=== PATIENT | female | born 1980 ===

== ENCOUNTER 2023-07-15 13:22 | Emergency (ER) | payer OTHER, SELFPAY ==
--- NOTE | 2023-07-15 | ECG_ITS ---
Test Reason : palpitations Blood Pressure : / mmHG Vent. Rate : 072 BPM Atrial Rate : 072 BPM P-R Int : 112 ms QRS Dur : 088 ms QT Int : 344 ms P-R-T Axes : 058 077 042 degrees QTc Int : 376 ms Normal sinus rhythm Normal ECG No previous ECGs available Referred By: Generic ED Physician Electronically Signed By:Roddy Elizalde
--- NOTE | ~2023-07-15 | XR_ITS ---
EXAMINATION: XR CHEST CLINICAL INFORMATION: Chest pain, palpitations COMPARISON: None available. TECHNIQUE: 2 views of the chest were obtained. FINDINGS: No significant abnormality is noted involving the heart, lungs, mediastinum, bony thorax or soft tissues. XR/XR chest 2V IMPRESSION: Unremarkable chest examination.
[2023-07-15 13:28] VITALS: BP 124/70; PULSE 74; O2SAT 100
[2023-07-15 13:41] VITALS: BP 108/64; PULSE 70; RESP 16; TEMP 36.8; O2SAT 100
[2023-07-15 13:44] VITALS: BP 108/64; PULSE 69; RESP 15; TEMP 36.8; O2SAT 100; BMI 27.7
[2023-07-15 13:49] VITALS: PULSE 71
[2023-07-15 13:49] LABS: MANUAL DIFF FLAG NO
[2023-07-15 13:56] LABS: Basophils Absolute Auto 0.1 X10*3/uL (0.0-0.2); Basophils Percent Auto 0.8 % (0-2); Eosinophils Absolute Auto 0.2 X10*3/uL (0.0-0.4); Eosinophils Percent Auto 3.9 % (0-4); Hematocrit 40.6 % (37.0-47.0); Hemoglobin 13.5 g/dl (12.0-16.0); Imm Gran Abs Auto 0.01 X10*3/uL (0.00-0.03); Imm Gran Pct Auto 0.2 % (0.0-0.4); Lymphocytes Absolute Auto 2.1 X10*3/uL (1.2-4.9); Lymphocytes Percent Auto 33.2 % (20-40); Mean Corpuscular HGB Conc 33.3 g/dl (31.0-35.0); Mean Corpuscular Hemoglobin 29.7 pg (27.0-33.0); Mean Corpuscular Volume 89.4 fL (80.0-98.0); Mean Platelet Volume 11.2 fL (9.4-12.3); Monocytes Absolute Auto 0.5 X10*3/uL (0.1-1.2); Monocytes Percent Auto 7.4 % (2-11); Neutrophils Absolute Auto 3.4 x10*3/uL (2.0-8.3); Neutrophils Percent Auto 54.5 % (45-73); Platelet Count 289 X10*3/uL (160-400); Red Blood Count 4.54 X10*6/uL (4.20-5.50); White Blood Count 6.2 X10*3/uL (4.8-10.8)
[2023-07-15 14:02] LABS: Anion Gap 12 (12-20); Blood Urea Nitrogen 9 mg/dL (9-16); Calcium 9.5 mg/dL (8.4-10.2); Carbon Dioxide 24 mmol/L (22-29); Chloride 105 mmol/L (96-108); Creatinine Clr Calc Pharmacy 88.1; Estimated Glomerular Filt Rate > 60; Glucose Random 84 mg/dL (60-115); Potassium 3.6 mmol/L (3.3-5.1); Sodium 137 mmol/L (135-145)
[2023-07-15 14:13] LABS: Troponin-I High Sensitivity < 2.7 ng/L (<3.5-17.0)
[2023-07-15 14:37] LABS: Partial Thromboplastin Time 33.8 SEC (26.0-36.8)
--- NOTE | 2023-07-15 14:56 | ED_ITS ---
HPI - Arrhythmia/Palpitations General Chief Complaint: Arrhythmia/Palpitations Stated Complaint: NEAR SYNCOPE CHEST PALPITATIONS Time Seen by Provider: 07/15/23 14:44 Source: patient and family Mode of arrival: ambulatory Limitations: no limitations History of Present Illness HPI narrative: 42-year-old man presents emergency room complaining of 3 months of chest tightness and sharp pain. She states she has not seen anyone she did have an EKG at her doctor's office which they stated was normal. Today she was going for doctor's visit and felt like she might pass out. Her was with her states she had 4 of leuk she states she was sitting talking to someone this happened she denies any falls or injuries she lose consciousness states she did have some chest pressure at that time and palpitations. All the symptoms have resolved she still has chronic sharp chest pain she has not taken any for this she denies any falls or injuries sent hit her chest she has not been lifting anything. Patient is also complaining of coldness to her feet when she is to call if she feels dizzy. MD complaint: rapid heart beat and heart racing Related Data Allergies Allergy/AdvReac Type Severity Reaction Status Date / Time No Known Allergies Allergy Mild NKA Unverified 03/15/21 15:51 Review of Systems 2 Review of Systems: Review of systems: General: Patient denies any fever chills recent illness or falls Musculoskeletal: Denies back pain or body aches or other injuries HEENT: denies headache, runny nose, ear pain Respiratory: denies shortness of breath, cough Cardiovascular: chest pain or palpitations : denies dysuria, frequency Abdomen: no nausea vomiting denies abdominal pain Extremities: no swelling, no pain Skin: no diaphoresis Yes all other systems are reviewed and are negative [facility] Social History Social History (System 03/15/21 @ 15:51 by Shawna Sheridan) Smoked in Last 30 Days: No Use of substances other than those prescribed or required for medical reasons: No Advance Directives: No Physical Exam 2 Vital Signs: Vital Signs: Last Vital Signs Temp 98 F 07/15/23 15:01 Pulse 72 07/15/23 15:01 Resp 19 07/15/23 15:01 BP 112/79 07/15/23 15:01 Pulse Ox 99 07/15/23 15:01 O2 Del Method Room Air 07/15/23 15:01 BMI result Body Mass Index 27.7 Neurological exam: CN II- XII tested. Patient is alert and oriented to person place and time. Patient has no dysphagia or dysarthia, denies good vision in all four vision julian no nystagmus on exam, good strength to upper and lower extremities with normal reflexes to brachioradialis, wrist, patella and achilles. Negative romberg, good finger to nose and heel to golden. General: Well-appearing well-nourished in no signs of distress HEENT: Normocephalic atraumatic Neck: No signs of JVD, no masses no tenderness or lymphadenopathy Cardiovascular: Regular rate and rhythm Respiratory: Clear to auscultation bilaterally Abdomen: Soft nontender no masses Extremities: Normal pedal pulses no signs of edema Skin: Dry warm no rashes Back: No tenderness full ROM Course Course Course Narrative: Patient had some general labs sent from triage added on an x-ray and TSH which were also negative I gave the patient prednisone Toradol she states she is feeling somewhat better go home ibuprofen and PCP follow-up Medications Administered Discontinued Medications Generic Name Dose Route Start Last Admin Trade Name Freq PRN Reason Stop Dose Admin Sodium Chloride 1,000 mls @ 999 mls/hr 07/15/23 15:15 07/15/23 16:12 Ns IV 07/15/23 16:15 Infused .Q1H1M NAVNEET Infusion Prednisone 60 mg 07/15/23 15:01 07/15/23 15:06 Prednisone 20 Mg Tablet PO 07/15/23 15:02 60 mg ONCE ONE Administration Medical Decision Making Medical Decision Making [facility] Narrative: Occupation for x-ray and EKG I will check labs and reassess Differential Diagnosis Differential Diagnoses: The differential diagnosis associated with the presentation includes Arrhythmia palpitations costochondritis ACS pneumonia anxiety depression anemia electrolyte abnormality Admission/Observation Consideration of admission/observation: Escalation of care including admission/observation considered Lab Data [facility] Lab Attestation statement: I reviewed the patient's lab results. 07/15/23 13:45 07/15/23 13:45 Labs: Lab Results 07/15/23 07/15/23 Range/Units 13:45 15:12 WBC 6.2 (4.8-10.8) X10*3/uL RBC 4.54 (4.20-5.50) X10*6/uL Hgb 13.5 (12.0-16.0) g/dl Hct 40.6 (37.0-47.0) % MCV 89.4 (80.0-98.0) fL MCH 29.7 (27.0-33.0) pg MCHC 33.3 (31.0-35.0) g/dl RDW 12.0 (11.0-16.0) % Plt Count 289 (160-400) X10*3/uL MPV 11.2 (9.4-12.3) fL Immature Gran % (Auto) 0.2 (0.0-0.4) % Neut % (Auto) 54.5 (45-73) % Lymph % (Auto) 33.2 (20-40) % [place] % (Auto) 7.4 (2-11) % Eos % (Auto) 3.9 (0-4) % Baso % (Auto) 0.8 (0-2) % Lymph # (Auto) 2.1 (1.2-4.9) X10*3/uL [place] # (Auto) 0.5 (0.1-1.2) X10*3/uL Eos # (Auto) 0.2 (0.0-0.4) X10*3/uL Baso # (Auto) 0.1 (0.0-0.2) X10*3/uL Abs Immat Gran (auto) 0.01 (0.00-0.03) X10*3/uL Absolute Neuts (auto) 3.4 (2.0-8.3) x10*3/uL Absolute Nucleated RBC 0.000 (0.0-0.012) X10*3/uL Nucleated RBC % (auto) 0.0 (0.0-0.2) /100WBC APTT 33.8 (26.0-36.8) SEC Sodium 137 (135-145) mmol/L Potassium 3.6 (3.3-5.1) mmol/L Chloride 105 (96-108) mmol/L Carbon Dioxide 24 (22-29) mmol/L Anion Gap 12 (12-20) BUN 9 (9-16) mg/dL Creatinine 0.69 (0.5-1.4) mg/dL Estim Creat Clear Calc 88.1 Estimated GFR > 60 Random Glucose 84 (60-115) mg/dL Calcium 9.5 (8.4-10.2) mg/dL Troponin I High Sens < 2.7 < 2.7 (<3.5-17.0) ng/L Beta HCG, Quant < 2 mIU/mL Independent Interpretation I performed an independent interpretation of an: EKG Interpretation: Rate 72 normal sinus rhythm normal intervals no signs ischemia no previous for comparison patient has no concerning signs there is no signs of [id number] there was no epsilon wave there is no LVH to suggest hypertrophic cardiomyopathy V1 and V2 do not have right bundle-branch pattern RSR prime pattern concerning for Brugada there is no epsilon wave concerning for arrhythmogenic right ventricular hypertrophy QT intervals also normal. Discharge Plan Discharge Clinical Impression: Palpitations, Chest pain, Near syncope Patient Disposition: Home, Self-Care Instructions: Chest Pain (DC), Near Syncope (ED), Heart Palpitations (DC) Additional Instructions: You were seen today in the emergency department for chest pain and palpitations with near syncope. You had x-ray and labs withdrawal unremarkable. This could be related to your chest wall causing pain both to negative blood test called troponins this is very unlikely related to your heart even for the next 30 days. You do need to follow up with her doctor. If you do pass out or have more palpitations please return to the emergency department. Referrals: Physician,Unknown J [Primary Care Provider] - (Please call follow-up with your primary care doctor.)
[2023-07-15 15:01] VITALS: BP 112/79; PULSE 72; RESP 19; TEMP 36.6; O2SAT 99
[2023-07-15] MEDS: predniSONE 20 MG TABLET 60 MG PO (15:06)
[2023-07-15] MEDS: 0.9 % Sodium Chloride 1,000 ML 999 ML IV (15:06)
[2023-07-15 15:23] LABS: HCG Quantitative < 2 mIU/mL
[2023-07-15 15:43] LABS: Troponin-I High Sensitivity < 2.7 ng/L (<3.5-17.0)
[2023-07-15 16:55] LABS: TSH reflex Free T4 0.79 uIU/mL (0.32-4.0)
[2023-07-15 17:25] VITALS: BP 109/62; PULSE 81; RESP 18; TEMP -17.7; TEMP 0; O2SAT 100
== END 2023-07-15 17:28 | disposition home or self-care (01) ==
PROVIDERS: Emergency Provider Student in an Organized Health Care Education/Training Program
DX: R00.2 Palpitations (principal); R55 Syncope and collapse; R07.9 Chest pain, unspecified
CPT/HCPCS: 36415; 71046; 80048; 84443; 84484; 84702; 85025; 85730; 93005; 96360; 99284; 99285

== ENCOUNTER → 2023-07-15 13:38 | Outpatient (BNV) | payer OTHER, SELFPAY | PROVIDERS: Emergency Provider Student in an Organized Health Care Education/Training Program; Visit Provider Internal Medicine Cardiovascular Disease | DX: R00.2 Palpitations (principal) | CPT/HCPCS: 93010 ==